=== PATIENT | male | born 1945 | race Caucasian/White ===

== ENCOUNTER 2019-09-29 10:17 | Outpatient (CLI) | payer MEDICARE, OTHER ==
[2019-09-29] MEDS ORDERED: BUFFERED LIDOCAINE 10 ML SYRINGE ONE (10:23)
[2019-09-29] MEDS ORDERED: IOTHALAMATE MEGLUMINE 50 ML VIAL ONE (10:23)
[2019-09-29 10:59] LABS: CALCIUM 9.5 mg/dL (8.5-10.3); CREATININE 1.2 mg/dL (0.6-1.2)
[2019-09-29] MEDS ORDERED: IOTHALAMATE MEGLUMINE 50 ML VIAL IVP ONE (11:41)
[2019-09-29] MEDS ORDERED: BUFFERED LIDOCAINE 10 ML SYRINGE IU ONE (11:41)
--- NOTE | 2019-09-29 12:59 | XRAY Report ---
Reason: LT KNEE INJURY Procedure Date: 09/29/2019 Accession Number: [id number] / [id number] Procedure: FL - Arthrogram Needle Placement CPT Code: Final Report FULL RESULT: EXAM: LEFT KNEE ARTHROGRAPHIC INJECTION WITH FLUOROSCOPIC GUIDANCE EXAM DATE: 09/29/2019 11:37 AM. CLINICAL HISTORY: Left knee injury. COMPARISON: None. TECHNIQUE: The risks, benefits, and alternatives of the procedure were discussed with the patient. All questions were answered. Written and verbal consent were obtained. The knee joint was marked under fluoroscopy and prepped and draped in a sterile manner. Local anesthesia was performed with 1% lidocaine. A 22-gauge needle was then inserted into the knee joint. 35 mL of a solution containing 25% iodinated contrast in sterile saline was then injected. The needle was removed without immediate complication. Other: None. Fluoroscopy Time: 0.5 minutes. Number of Images: 12. FINDINGS: Bones and joints: No fracture or subluxation. Injection: Fluoroscopic images demonstrate needle placement and contrast in the knee joint. This moment of contrast is also injected outside of the joint during placement of the needle. IMPRESSION: Fluoroscopically guided arthrographic injection of the knee. [facility]
--- NOTE | 2019-09-29 13:36 | CT Report ---
Reason: LT KNEE INJURY Procedure Date: 09/29/2019 Accession Number: [id number] / [id number] Procedure: CT - LOWER EXTREMITY W - LT CPT Code: Final Report FULL RESULT: EXAM: LEFT KNEE CT ARTHROGRAM WITH CONTRAST EXAM DATE: 09/29/2019 11:51 AM. CLINICAL HISTORY: Left knee injury. COMPARISON: KNEE 3 VIEW RT 07/23/2016 10:49 AM 07/15/2015 1:23 PM. TECHNIQUE: Thin-section axial images were acquired of the knee after an arthrographic injection dictated under a separate exam. Post-processing: Coronal and sagittal reformats. Other: None. FINDINGS: Bones: No fracture or bone lesion. Articular Cartilage: Moderate articular cartilaginous thinning is seen at the lateral femoral condyle and the lateral aspect of the medial femoral condyle. Menisci: Undersurface degenerative tear mid body medial meniscus on series 11 image 79, series 2 image 78. Ligaments: No complete or external partial tears of the anterior cruciate, posterior cruciate, medial collateral, and lateral collateral ligamentous structures. Tendons: The extensor mechanism is unremarkable. Musculature: Normal. No fatty atrophy. Other: No Bakers cyst. No loose bodies. No complete tears of the medial and lateral retinacula. No soft tissue swelling. IMPRESSION: 1. There is some moderate articular cartilaginous thinning at the lateral femoral condyle and lateral aspect of the medial femoral condyle. Medial femoral condyle also shows a cartilaginous flap outlined with contrast material. 2. Undersurface degenerative tear mid body medial meniscus. No displaced fragment. 3. Lateral meniscus, cruciates and collaterals appear unremarkable. 4. No evidence for loose bodies. [facility] MUSCULOSKELETAL RADIOLOGY SECTION
== END 2019-09-29 10:18 | disposition home or self-care (01) ==
LOC: LAB 10:17
PROVIDERS: ATTEND Family Medicine
DX: S83.242A Other tear of medial meniscus, current injury, left knee, initial encounter (principal); Z95.0 Presence of cardiac pacemaker
CPT/HCPCS: 36415; 73701; 77002; 80048; Q9961